=== PATIENT | female | born 1975 | race Caucasian/White ===

== ENCOUNTER 2017-09-21 07:37 | Observation (INO) | payer OTHER ==
[2017-09-21] MEDS ORDERED: CEFAZOLIN 2 GM/50 ML (PMX) 50 ML IVPB (08:30)
[2017-09-21] MEDS ORDERED: ROCURONIUM 50 MG INJ ×2 (09:35→11:57)
[2017-09-21] MEDS ORDERED: FENTAnyl 50 MCG/ML VIAL (09:35)
[2017-09-21] MEDS ORDERED: PROPOFOL 20 ML (09:35)
[2017-09-21] MEDS ORDERED: MIDAZOLAM 1 MG/ML 2 ML INJ (09:35)
[2017-09-21] MEDS ORDERED: ROPIVACAINE 0.2% 20 ML VIAL (09:35)
[2017-09-21] MEDS ORDERED: HYDROmorphONE (0.2 MG/ML) 10ML SYG IV ×3 (10:00)
[2017-09-21] MEDS ORDERED: ONDANSETRON 4 MG INJ IV (10:00)
[2017-09-21] MEDS ORDERED: EPHEDrine SULFATE 50 MG/5 ML SYG IV (10:00)
[2017-09-21] MEDS ORDERED: METOCLOPRAMIDE 10 MG INJ IV (10:00)
[2017-09-21] MEDS ORDERED: FENTAnyl 50 MCG/ML VIAL IV ×3 (10:00)
[2017-09-21] MEDS ORDERED: OXYCODONE/ACETAMINOPHEN (5/325) TAB PO (10:00)
[2017-09-21] MEDS ORDERED: DIPHENHYDRAMINE 50 MG INJ IV (10:00)
[2017-09-21] MEDS ORDERED: MEPERIDINE 25 MG INJ IV (10:00)
[2017-09-21] MEDS ORDERED: BUPIVACAINE 0.5%/EPI (SDV) 30 ML INJ (10:32)
[2017-09-21] MEDS ORDERED: SUGAMMADEX SODIUM 200 MG/2 ML VIAL IV (11:57)
[2017-09-21] MEDS ORDERED: KETOROLAC 30 MG INJ (11:57)
[2017-09-21] MEDS ORDERED: CEFAZOLIN 1 GM INJ (11:57)
[2017-09-21] MEDS ORDERED: DEXAMETHASONE 4 MG/ML 1 ML INJ (11:57)
[2017-09-21] MEDS ORDERED: METOCLOPRAMIDE 10 MG INJ (11:57)
[2017-09-21] MEDS ORDERED: ONDANSETRON 4 MG INJ (11:57)
[2017-09-21] MEDS ORDERED: MEPERIDINE 100 MG INJ (13:18)
[2017-09-21] MEDS ORDERED: HYDROCODONE/APAP (5/325) TAB PO ×2 (13:30)
[2017-09-21] MEDS ORDERED: ZOLPIDEM 5 MG TAB PO (13:30)
[2017-09-21] MEDS ORDERED: HYDROmorphONE 1 MG/ML SYG IV (13:30)
[2017-09-21] MEDS ORDERED: KETOROLAC 30 MG INJ IV (13:30)
[2017-09-21] MEDS ORDERED: DIPHENHYDRAMINE 50 MG CAP PO (13:30)
[2017-09-21] MEDS ORDERED: BISACODYL (EC) 5 MG TAB PO (13:30)
[2017-09-21] MEDS ORDERED: CEFAZOLIN 1 GM/50 ML (PMX) 50 ML IVPB (14:00)
[2017-09-21] MEDS: LACTATED RINGER'S 1,000 ML IV ×2 (19:42→21:19)
[2017-09-21] MEDS: CEFAZOLIN 1 GM/50 ML (PMX) 50 ML IVPB (19:43)
[2017-09-21] MEDS: METOCLOPRAMIDE 10 MG TAB PO (19:43)
[2017-09-21] MEDS: KETOROLAC 30 MG INJ IV (19:44)
[2017-09-22] MEDS: KETOROLAC 30 MG INJ IV ×2 (01:52→07:03)
[2017-09-22] MEDS: METOCLOPRAMIDE 10 MG TAB PO ×3 (01:52→12:05)
[2017-09-22] MEDS: LACTATED RINGER'S 1,000 ML IV (03:31)
[2017-09-22] MEDS: CEFAZOLIN 1 GM/50 ML (PMX) 50 ML IVPB ×2 (03:32→11:18)
[2017-09-22 06:32] LABS: ADD MAN DIFF? NO
[2017-09-22 06:35] LABS: BASOPHILS % 0.2 % (0.0-2.0); EOSINOPHILS # 0.1 10^3/ul (0.0-0.5); EOSINOPHILS % 0.7 % (0.0-7.0); HEMATOCRIT 32.4 % (37.0-47.0); HEMOGLOBIN 10.5 g/dl (12.0-16.0); LYMPHOCYTES # 1.8 10^3/ul (0.8-2.9); LYMPHOCYTES % 21.7 % (15.0-51.0); MEAN CORPUSCULAR HEMOGLOBIN 30.2 pg (29.0-33.0); MEAN CORPUSCULAR HGB CONC 32.4 g/dl (32.0-37.0); MEAN CORPUSCULAR VOLUME 93.1 fl (82.0-101.0); MEAN PLATELET VOLUME 10.8 fl (7.4-10.4); MONOCYTE # 0.7 10^3/ul (0.3-0.9); NEUTROPHIL # 5.8 10^3/ul (1.6-7.5); PLATELET COUNT 180 10^3/UL (140-415); RED BLOOD COUNT 3.48 10^6/ul (4.20-5.40); RED CELL DISTRIBUTION WIDTH 13.2 % (11.5-14.5)
[2017-09-22 06:35] LABS: WHITE BLOOD COUNT 8.5 10^3/ul (4.8-10.8)
[2017-09-22 07:04] LABS: ANION GAP 9 (8-16); BLOOD UREA NITROGEN 8 mg/dl (7-20); CARBON DIOXIDE 28 mmol/L (21-31); CHLORIDE 106 mmol/L (97-110); CREATININE 0.65 mg/dl (0.44-1.00); POTASSIUM 4.1 mmol/L (3.5-5.1); SODIUM 139 mmol/L (135-144)
[2017-09-22] MEDS ORDERED: PAROXETINE MESYLATE 7.5 MG PO (09:00)
[2017-09-22] MEDS: PAROXETINE (CR) 12.5 MG TAB PO (09:19)
== END 2017-09-22 13:25 | disposition home or self-care (01) ==
LOC: SDS 07:37 → REC 13:54 → PP2 18:48
DX: Z40.02 Encounter for prophylactic removal of ovary(s) (principal); Z15.01 Genetic susceptibility to malignant neoplasm of breast; N83.11 Corpus luteum cyst of right ovary; N83.02 Follicular cyst of left ovary; N73.6 Female pelvic peritoneal adhesions (postinfective); Z80.3 Family history of malignant neoplasm of breast; Z80.41 Family history of malignant neoplasm of ovary; Z83.3 Family history of diabetes mellitus; Z80.0 Family history of malignant neoplasm of digestive organs; Z82.49 Family history of ischemic heart disease and other diseases of the circulatory system; N83.8 Other noninflammatory disorders of ovary, fallopian tube and broad ligament
CPT/HCPCS: 58661; 80051; 82565; 84520; 85025; 88305; 93005; 99217; G0378